=== PATIENT | female | born 1970 | race Caucasian/White ===

== ENCOUNTER 2017-03-08 06:53 | Day surgery (SDC) | payer OTHER ==
[~2017-03-08] VITALS: Ht 157.5 cm; Wt 76.2 kg
[~2017-03-08 06:53] MED LIST: LEVO-T150 MCG PO; MEGARED OMEGA-1 EAC2 PO
[2017-03-08 07:56] VITALS: BP 121/75
[2017-03-08] MEDS ORDERED: ENDOCET 5-3251 EACH PO (10:19)
[2017-03-08 11:25] VITALS: BP 104/67
[2017-03-08 15:51] VITALS: BP 113/69
== END 2017-03-08 18:54 | disposition home or self-care (01) ==
LOC: SDC 06:53 → 2SOUTH 10:21 → 2EASTP 11:15
DX: D06.9 Carcinoma in situ of cervix, unspecified (principal); E06.3 Autoimmune thyroiditis; E78.5 Hyperlipidemia, unspecified; E03.9 Hypothyroidism, unspecified; E66.3 Overweight; Z68.30 Body mass index [BMI] 30.0-30.9, adult; E55.9 Vitamin D deficiency, unspecified; Z82.49 Family history of ischemic heart disease and other diseases of the circulatory system; Z80.1 Family history of malignant neoplasm of trachea, bronchus and lung; Z83.49 Family history of other endocrine, nutritional and metabolic diseases; Z80.3 Family history of malignant neoplasm of breast
CPT/HCPCS: 88307; G0378; J0131; J0330; J0690; J1100; J1170; J1885; J2250; J2405; J2710; J3010; J7120; S0020